=== PATIENT | female | born 1995 | race Caucasian/White ===

== ENCOUNTER 2017-03-12 16:05 | Emergency (ER) | payer OTHER ==
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
[2017-03-12] MEDS: KETOROLAC TROMETHAMINE 60 MG/2 ML VIAL IM ONE (17:24)
[2017-03-12] MEDS: ORPHENADRINE CITRATE 60 MG/2ML IM ONE (17:24)
[2017-03-12 17:41] VITALS: BP 112/74
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
== END 2017-03-12 17:36 | disposition home or self-care (01) ==
LOC: ED 16:05
DX: S16.1XXA Strain of muscle, fascia and tendon at neck level, initial encounter (principal); V48.5XXA Car driver injured in noncollision transport accident in traffic accident, initial encounter
CPT/HCPCS: 72125; J1885; J2360